=== PATIENT | male | born 1960 | race Hispanic/Latino ===

== ENCOUNTER 2018-03-16 10:34 | Observation (INO) | payer MEDICARE ==
[2018-03-16 11:18] LABS: #Basophils 0.1 thou/uL (0.0-0.2); #Eosinphils 0.7 thou/uL (0.0-0.7); #Lymphocytes 1.2 thou/uL (1.20-3.40); #Monocytes 0.5 thou/uL (0.11-0.59); #Neutrophils 5.2 thou/uL (1.40-6.50); %Basophils 0.7 % (0.0-1.0); %Eosinophils 8.8 % (0.0-10.0); %Lymphocytes 15.8 % (21.0-51.0); %Monocytes 6.2 % (0.0-10.0); %Neutrophils 68.5 % (42.0-75.0); Hemoglobin 13.1 g/dL (14.0-18.0); Mean Corpuscular HGB CONC 32.6 g/dL (32.0-36.0); Mean Corpuscular Volume 91.8 fl (80.0-94.0); Mean Platelet Volume 9.8 fL (7.4-10.4); Platelet Count 167 thou/uL (130-400); RBC Distribution Width 13.9 % (11.5-14.5); Red Blood Cell (RBC) Count 4.37 mill/uL (4.70-6.10); White Blood Cell (WBC) Count 7.6 thou/uL (4.8-10.8)
[2018-03-16 11:42] LABS: ALT (SGPT) 14 U/L (8-55); AST (SGOT) 17 U/L (5-34); Alkaline Phosphatase 155 U/L (40-150); Anion Gap 20 mmol/L (10-20); BUN (Urea Nitrogen) 85 mg/dL (8.4-25.7); Bilirubin, Total 0.5 mg/dL (0.2-1.2); CK (CPK) 274 U/L (30-200); Calc. Creatinine Clearance 0 mL/min (70-130); Calcium 9.1 mg/dL (7.8-10.44); Carbon Dioxide 21 mmol/L (22-29); Chloride 100 mmol/L (98-107); Estimated GFR-MDRD 4; Globulin 3.3 g/dL (2.4-3.5); Glucose 244 mg/dL (70-105); Potassium 5.9 mmol/L (3.5-5.1); Protein, Total 7.3 g/dL (6.0-8.3); Sodium 135 mmol/L (136-145)
[2018-03-16 11:46] LABS: Troponin I 0.094 ng/mL (< 0.028)
[2018-03-16 11:50] LABS: CKMB 9.2 ng/mL (0-6.6)
[2018-03-16] MEDS ORDERED: Calcium Gluc 4.6 MEQ/10 ML (100 MG/ML) ONE (12:09)
[2018-03-16] MEDS ORDERED: Insulin Regular 300 UNITS/3 ML VIAL ONE (12:09)
[2018-03-16] MEDS ORDERED: Dextrose 50% Abboject 50 ML SYRINGE ONE (12:09)
[2018-03-16] MEDS ORDERED: Sodium Bicarb 50 MEQ/50 ML Abboject 8.4% SYRINGE ONE (12:09)
--- NOTE | 2018-03-16 12:29 | RAD ---
FRONTAL RADIOGRAPH CHEST: Date: 03-16-18 Comparison: 01-03-14 History: Dyspnea. FINDINGS: Midline sternotomy wires are present. Heart and mediastinal contours are within normal limits. No pne umothorax, pleural fluid, focal consolidation or alveolar edema. There is a linear segment of what appears to represent catheter tubing overlying the left lung base/c ardiac silhouette, stable. There is a segment of catheter tubing overlying the expected location of t he descending thoracic aorta. IMPRESSION: No acute findings. See above discussion. POS: BOYD
[2018-03-16] MEDS ORDERED: hydrALAZINE 20 MG/ML VIAL ONE (13:20)
--- NOTE | 2018-03-16 13:52 | HP ---
PRIMARY CARE PHYSICIAN: [facility] call admission. [place] REASON FOR ADMISSION: AV fistula malfunction, hypertensive urgency, hyperkalemia. HISTORY OF PRESENT ILLNESS: A 57-year-old male who has end-stage renal disease, on hemodialysis , Friday, Friday as well as history of diabetes type 2, obesity, coronary artery disease with st ent, who went to dialysis center as per his routine schedule. Unfortunately, today they were not abl e to dialyze him because his fistula was not functioning properly. His last dialysis was on Friday. At dialysis center, his blood pressure was also very high and he was complaining of chest discomfort , shortness of breath and that is why he was directed to emergency room. In the emergency room, his blood pressure was 208/88. His routine blood test showed hyperkalemia and indeterminate troponin. A fter emergency room treatment, his blood pressure was slightly improved and he was feeling better in the form of shortness of breath and chest discomfort cuenca. He was also complaining of left upper ext remity pain. He denies any fever or chills. He denies any cough. He denies any orthopnea, PND, leg swelling. He denies any calf tenderness. He denies any UTI symptoms. He denies any constipation, diarrhea, melena or hematochezia. REVIEW OF SYSTEMS: The following complete review of systems was negative, unless otherwise mentioned in the HPI or below: Constitutional: Weight loss or gain, ability to conduct usual activities. Sk in: Rash, itching. Eyes: Double vision, pain. ENT/Mouth: Nose bleeding, neck stiffness, pain, te nderness. Cardiovascular: Palpitations, dyspnea on exertion, orthopnea. Respiratory: Shortness of breath, wheezing, cough, hemoptysis, fever or night sweats. Gastrointestinal: Poor appetite, abdom inal pain, heartburn, nausea, vomiting, constipation, or diarrhea. Genitourinary: Urgency, frequenc y, dysuria, nocturia. Musculoskeletal: Pain, swelling. Neurologic/Psychiatric: Anxiety, depressio n. Allergy/Immunologic: Skin rash, bleeding tendency. Please see my HPI for pertinent positive and negative. All other review of systems reviewed and nega tive except as mentioned in the HPI. ALLERGIES: IODINE, SHELLFISH containing product. CURRENT HOME MEDICATIONS: The patient did not bring his home medication and he does not know the nam e of medication, so unable to review, but based on our previous hospital course, he was on amiodarone 200 mg daily, PhosLo 667 mg 2 tablets t.i.d., calcium carbonate 1000 mg t.i.d., Coreg 3.125 mg p.o. b.i.d., insulin Lantus 40 units subcu morning and 30 units in evening, Effient 10 mg daily. This med ication mentioned above is not verified. PAST MEDICAL HISTORY: ESRD, on hemodialysis. with his following him as an outpatient basis; he is on Friday, Friday, Friday dialysis schedule. Diabetes type 2 requiring insulin, coronary arter y disease with a history of stent, obesity, dyslipidemia, degenerative joint disease, anemia of renal disease, secondary hyperparathyroidism of renal origin, chronic diastolic heart failure, bilateral c ataracts. PAST SURGICAL HISTORY: Cardiac catheterization with stent placement; per patient, he has 7 stent in his heart. Dialysis procedure including temporary dialysis catheter placement in right groin, tunnel ed dialysis catheter placement in chest. He has AV fistula in the left upper arm. He also had a per itoneal dialysis catheter placed and subsequently removed, left heel surgery, left knee surgery and r ight finger surgery. CABG x3. PAST PSYCHIATRIC HISTORY: Reviewed and negative. SOCIAL HISTORY: The patient is a former smoker. He quit smoking more than 10 years ago. He drinks alcohol occasionally. He denies any other illicit drug abuse. FAMILY HISTORY: Diabetes, hypertension runs among several family members. Coronary artery disease a lso positive among parents and siblings. EMERGENCY ROOM COURSE: Patient is given Humulin R 10 units, D50 one ampule, sodium bicarbonate 1 amp ule, calcium gluconate 1 ampule. PHYSICAL EXAMINATION: VITAL SIGNS: Blood pressure on admission 208/88, pulse 75, respiratory rate 15, temperature 98.7, sa turation 97% on room air, weight 98 kilograms. GENERAL: Patient is currently hypertensive, no obvious acute distress. HEAD: Normocephalic, atraumatic. EYES: Pupils round, reactive to light. Extraocular muscle intact. ENT: Oropharynx within normal limits. Moist mucous membranes. No oral lesion, no pharyngeal erythe ma, no exudate. NECK: Supple, no JVD, no thyromegaly, no carotid bruit, no jugular venous distention. LUNGS: Clear to auscultation without any obvious rales or rhonchi. No end expiratory wheezing heard . No accessory muscles of respiration in use. CARDIAC: S1, S2 regular without any significant murmur. ABDOMEN: Obesity present. Bowel sounds present, nontender, nondistended. No organomegaly, no mass, no suprapubic tenderness. BACK: Unremarkable, no CVA tenderness. EXTREMITIES: Upper extremity: Passive movements of all joints are normal. Lower extremities: No e art, no calf tenderness. Good distal pulsation. SKIN: No skin rash. HEMATOLOGICAL: No lymphadenopathy. PSYCHIATRIC: Normal affect. NEUROLOGIC: Nonfocal examination. Patient is moving all 4 limbs. Cranial nerves II-XII intact. Mo tor and sensation within normal limits. Reflexes symmetrical. No cerebellar sign. SIGNIFICANT LABORATORY DATA: Telemetry showing sinus rhythm on monitor. Chest x-ray based on my rev iew, no acute cardiopulmonary process. CBC: WBC 7.6, hemoglobin 13.1, platelet 167. BMP: Sodium 1 35, potassium 5.9, chloride 100, carbon dioxide 21, anion gap 20, BUN 85, creatinine 12.65, glucose 2 44, calcium 9.1. LFT: AST 17, ALT 14, alkaline phosphatase 155, albumin 4.0. CK 274, CK-MB 9.2, tr oponin 0.094. BNP 2786. ASSESSMENT AND PLAN: 1. Hypertensive urgency. We will use hydralazine, labetalol p.r.n. basis and continue with nitro pa tch q.8 hourly, Coreg 3.125 mg twice daily. We will also add hydralazine 25 mg p.o. t.i.d. and will adjust his blood pressure medication while in hospital. 2. Hyperkalemia, likely due to end-stage renal disease. Patient's last dialysis was on Friday. He was not able to get dialysis today. He is given hyperkalemia cocktail treatment in the emergency zaynab m. We will give him Kayexalate 30 grams p.o. one time dose. We will repeat renal function test nu rrow. Nephrology will be consulted. 3. AV fistula malfunction. We will consult Nephrology. The patient will need AV fistulogram tomorr ow if fistula is not functioning properly for dialysis, then he may need temporary dialysis access. We will defer that part to Nephrology. 4. Secondary hyperparathyroidism of renal origin. We will continue PhosLo 667 mg 2 tablets t.i.d. 5. Diabetes type 2. Insulin as per sliding scale protocol. We will also resume Levemir insulin 15 units subcu b.i.d. 6. Coronary artery disease with history of stent and coronary artery bypass graft. Continue aspirin along with Coreg therapy. 7. Chronic diastolic heart failure. We will obtain echocardiography to assess ejection fraction and other structural abnormality during this admission. Elevated troponins likely due to demand ischemi a and renal insufficiency. We will do serial cardiac enzymes x3 to rule out acute coronary syndrome. The patient will be kept on aspirin, nitropatch, and will check lipid profile for risk stratificati on. 8. Deep venous thrombosis prophylaxis not needed because we are expecting discharge in 24-48 hours. 9. Gastrointestinal prophylaxis, Protonix 40 mg p.o. daily. CODE STATUS: The patient is FULL CODE. Patient does not have any surrogate decision maker. He make s his decision by himself. Disposition plan based on clinical course. Plan of care discussed with the patient in detail.
[2018-03-16] MEDS ORDERED: Loratadine 10 MG TAB PO PRN (14:23)
[2018-03-16] MEDS ORDERED: Calcium Carbonate 500 MG ChewTAB PO PRN (14:23)
[2018-03-16] MEDS ORDERED: Chloraseptic Spray 180 ml Bottle PO PRN (14:23)
[2018-03-16] MEDS ORDERED: Diabetic Tussin 200 MG/10 ML UDCUP PO PRN (14:23)
[2018-03-16] MEDS ORDERED: Eucerin (Mineral Oil/Petrolatum,White) 30 gm Jar TOP PRN (14:23)
[2018-03-16] MEDS ORDERED: Milk Of Magnesia 30 ML UDCUP PO PRN (14:23)
[2018-03-16] MEDS ORDERED: Ondansetron HCl/PF 4 MG/2 ML Vial IVP PRN (14:23)
[2018-03-16] MEDS ORDERED: Dextrose 5% in Water 1,000 ML IV PRN (14:23)
[2018-03-16] MEDS ORDERED: Acetaminophen 325 MG TAB PO PRN (14:23)
[2018-03-16] MEDS ORDERED: hydrALAZINE 20 MG/ML VIAL SLOW IVP PRN (14:23)
[2018-03-16] MEDS ORDERED: Senokot 8.6 MG TAB PO PRN (14:23)
[2018-03-16] MEDS ORDERED: Loperamide HCl 2 MG CAP PO PRN (14:23)
[2018-03-16] MEDS ORDERED: Nitroglycerin 0.4 MG TAB (25 Tab Bottle) PO PRN (14:23)
[2018-03-16] MEDS ORDERED: Mag-Al 1200 mg/1200 mg/30 ML UDCUP PO PRN (14:23)
[2018-03-16] MEDS ORDERED: Sodium Chloride 0.65% Nasal 44 ML BOT EA NARE PRN (14:23)
[2018-03-16] MEDS ORDERED: Artificial Tears 18 DROP/0.9 ML EA EYE PRN (14:23)
[2018-03-16] MEDS ORDERED: Zolpidem Tartrate 5 MG TAB PO PRN (14:23)
[2018-03-16] MEDS ORDERED: Ondansetron ODT 4 MG TAB PO PRN (14:23)
[2018-03-16] MEDS ORDERED: Labetalol HCl 100 MG/20 ML VIAL SLOW IVP PRN (14:23)
[2018-03-16] MEDS ORDERED: Dextrose 50% Abboject 50 ML SYRINGE SLOW IVP PRN (14:23)
[2018-03-16] MEDS ORDERED: HumaLOG 300 UNITS/3 ML VIAL SC PRN (14:23)
[2018-03-16 14:36] VITALS: BMI 37.0
[2018-03-16] MEDS: Nitroglycerin 2% Ointment 1 INCH/1 GM Packet TOP SCH ×2 (15:21→21:18)
[2018-03-16] MEDS: Calcium Acetate 667 MG CAP PO SCH (16:40)
[2018-03-16] MEDS: Carvedilol 3.125 MG TAB PO SCH (21:00)
[2018-03-16] MEDS: HYDROcodone/Acetaminophen 5/325 mg Tablet PO PRN (21:00)
[2018-03-16] MEDS ORDERED: Insulin Glargine 10 UNITS in Pre-Filled Syringe 1 EACH SC SCH (21:00)
[2018-03-16] MEDS ORDERED: hydrALAZINE 25 MG TAB PO SCH (21:00)
[2018-03-16] MEDS ORDERED: Atorvastatin Calcium 20 MG TAB PO SCH (21:00)
[2018-03-16] MEDS ORDERED: Nitroglycerin 0.4 MG TAB (25 Tab Bottle) ONE (21:09)
--- NOTE | 2018-03-17 03:02 | CON ---
DATE OF CONSULTATION: 03/16/2018 CONSULTING PHYSICIAN: REASON FOR CONSULTATION: End stage renal disease evaluation and care with hyperkalemia. REASON FOR ADMISSION: Clotted access. HISTORY OF PRESENT ILLNESS: A 57-year-old male with history of end-stage renal disease on hemodialys is Friday, Friday, and Friday. Last dialysis on Friday [facility] and was found to have clotted access and was sent to the hospital. The patient complains of mild shortness of breath. He had 4 kilos on before dialysis. He was found to have potassium of 5.9 and n ot able to get dialysis access declotted today and is being admitted. Nephrology is consulted for en d-stage renal disease evaluation and care. No fever or chills. No nausea, vomiting, no chest pain r eported. No palpitation. PAST MEDICAL HISTORY: Positive for end-stage renal disease, type 2 diabetes, coronary artery disease , obesity, hyperlipidemia, hyperparathyroidism, and congestive heart failure. PAST SURGICAL HISTORY: Cardiac catheterization, dialysis access procedures, AV fistula, peritoneal d ialysis catheter placed and removed due to failure, left heel surgery, left knee surgery, right finge r surgery, and CABG. HOME MEDICATIONS: Include amiodarone, PhosLo, calcium carbonate, Coreg, insulin, Lantus, and Effient . SOCIAL HISTORY: No smoking, alcohol, or illicit drug abuse. FAMILY HISTORY: No history of kidney disease. ALLERGIES: SHELLFISH and IODINE. REVIEW OF SYSTEMS: The following complete review of systems was negative, unless otherwise mentioned in the HPI or below: Constitutional: Weight loss or gain, ability to conduct usual activities. Sk in: Rash, itching. Eyes: Double vision, pain. ENT/Mouth: Nose bleeding, neck stiffness, pain, ten derness. Cardiovascular: Palpitations, dyspnea on exertion, orthopnea. Respiratory: Shortness of breath, wheezing, cough, hemoptysis, fever or night sweats. Gastrointestinal: Poor appetite, abdomi nal pain, heartburn, nausea, vomiting, constipation, or diarrhea. Genitourinary: Urgency, frequency , dysuria, nocturia. Musculoskeletal: Pain, swelling. Neurologic/Psychiatric: Anxiety, depression . Allergy/Immunologic: Skin rash, bleeding tendency. PHYSICAL EXAMINATION: GENERAL: This is an obese male in no apparent distress. VITAL SIGNS: Temperature 98.0, pulse 79, respiratory rate 18, blood pressure 140/91. HEENT: Atraumatic, normocephalic. Oral mucosa is moist. NECK: Supple, no masses. CARDIOVASCULAR: S1, S2 heard. RESPIRATORY: Reduced breath sounds at the bases. GASTROINTESTINAL: Abdomen is soft. MUSCULOSKELETAL: . DERMATOLOGIC: No rash. NEUROLOGIC: Alert, awake. PSYCHIATRIC: Mood and affect. LABORATORY DATA: Hemoglobin is 13.1, potassium 5.9, BUN 85, creatinine is 12.6. ASSESSMENT AND PLAN: 1. End-stage renal disease. Plan is to place the patient in observation. The patient needs declott ing of the access, but no radiologist available to do it today. 2. Hyperkalemia. Potassium is 5.9. Recommend medical management for now with close monitoring. No electrocardiogram changes. No chest pain or palpitation. Plan is to medically manage potassium and start dialysis as soon as access is established. 3. Mild hyponatremia. 4. Edema, controlled. 5. Hypertension, stable. 6. Anemia, mild. Plan is to have medically management of hyperkalemia. Limit potassium in the diet and monitored in [facility] and we will have declotting done as early as possible and dialysis when feasible. Thank you for the consult. We will follow.
[2018-03-17] MEDS: Nitroglycerin 2% Ointment 1 INCH/1 GM Packet TOP SCH ×2 (04:36→13:10)
[2018-03-17 05:09] LABS: Albumin 3.8 g/dL (3.5-5.0); Anion Gap 23 mmol/L (10-20); BUN (Urea Nitrogen) 93 mg/dL (8.4-25.7); BUN/Creatinine Ratio 6.88; Calc. Creatinine Clearance 8 mL/min (70-130); Calcium 8.9 mg/dL (7.8-10.44); Carbon Dioxide 17 mmol/L (22-29); Cardiac Risk 4.1 (Less than 4.5); Chloride 102 mmol/L (98-107); Cholesterol 110 mg/dl (< 200 Desired); Estimated GFR-MDRD 4; Glucose 74 mg/dL (70-105); HDL Cholesterol 27 mg/dL (>60 Neg Risk); LDL Cholesterol, Calculated 61 mg/dL; Phosphorus 5.6 mg/dL (2.3-4.7); Potassium 5.6 mmol/L (3.5-5.1); Sodium 136 mmol/L (136-145); Triglycerides 111 mg/dL (Less than 150)
[2018-03-17 07:11] LABS: #Eosinphils 0.7 thou/uL (0.0-0.7); #Lymphocytes 1.2 thou/uL (1.20-3.40); #Monocytes 0.5 thou/uL (0.11-0.59); #Neutrophils 5.6 thou/uL (1.40-6.50); %Basophils 0.5 % (0.0-1.0); %Eosinophils 8.3 % (0.0-10.0); %Lymphocytes 14.4 % (21.0-51.0); %Monocytes 6.5 % (0.0-10.0); %Neutrophils 70.3 % (42.0-75.0); Hemoglobin 13.1 g/dL (14.0-18.0); Mean Corpuscular HGB CONC 32.5 g/dL (32.0-36.0); Mean Corpuscular Hemoglobin 29.4 pg (27.0-31.0); Mean Corpuscular Volume 90.3 fl (80.0-94.0); Mean Platelet Volume 9.5 fL (7.4-10.4); Platelet Count 161 thou/uL (130-400); Red Blood Cell (RBC) Count 4.47 mill/uL (4.70-6.10)
[2018-03-17] MEDS: Calcium Acetate 667 MG CAP PO SCH ×3 (07:36→12:21)
[2018-03-17] MEDS: hydrALAZINE 25 MG TAB PO SCH ×2 (07:36→15:15)
[2018-03-17] MEDS: Carvedilol 3.125 MG TAB PO SCH (07:36)
[2018-03-17] MEDS: HYDROcodone/Acetaminophen 5/325 mg Tablet PO PRN (07:36)
[2018-03-17 07:55] LABS: Troponin I 0.092 ng/mL (< 0.028)
[2018-03-17 07:59] LABS: CKMB 9.7 ng/mL (0-6.6)
[2018-03-17] MEDS ORDERED: Insulin Glargine 22 UNITS in Pre-Filled Syringe 1 EACH SC SCH (09:00)
[2018-03-17] MEDS ORDERED: Aspirin 325 MG TAB PO SCH (09:00)
[2018-03-17] MEDS ORDERED: Insulin Glargine 10 UNITS in Pre-Filled Syringe 1 EACH SC SCH (09:00)
[2018-03-17] MEDS ORDERED: Clopidogrel Bisulfate 75 MG TAB PO SCH (09:00)
[2018-03-17] MEDS ORDERED: Sacubitril 49 MG/Valsartan 51 MG TABLET PO SCH (09:00)
--- NOTE | 2018-03-17 09:15 | PDOC.PN ---
- Subjective Encounter Start Date: 03/17/18 Encounter Start Time: 07:20 -: old records requested/rev Patient seen and examined for hyperkalemia. c/o dyspnea. No overnight events - Objective Resuscitation Status: Resuscitation Status FULL:Full Resuscitation MAR Reviewed: Yes Vital Signs & Weight: Vital Signs (12 hours) Temp Pulse Resp BP BP Pulse Ox 03/17/18 08:00 97.5 F L 82 20 03/17/18 07:18 97.5 F L 82 20 198/88 H 98 03/17/18 05:02 169/78 H 98 03/17/18 04:14 97.5 F L 78 20 197/88 H 98 03/16/18 23:05 97.8 F 81 20 169/76 H 96 Weight Weight 221 lb 12.8 oz I&O: 03/16/18 03/17/18 03/18/18 06:59 06:59 06:59 Intake Total 510 Output Total 0 Balance 510 Result Diagrams: 03/17/18 06:52 03/17/18 03:39 Additional Labs: Accuchecks 03/17/18 03/16/18 03/16/18 04:08 21:00 16:33 POC Glucose 75 274 H 112 H 03/16/18 14:01 POC Glucose 165 H EKG Reviewed by me: Yes (nsr) Phys Exam - Physical Examination Constitutional: NAD HEENT: PERRLA, moist MMs, sclera anicteric Neck: no JVD, supple Respiratory: no wheezing, no rales, no rhonchi Cardiovascular: RRR, no significant murmur, no rub Gastrointestinal: soft, non-tender, no distention, positive bowel sounds obesity+ Musculoskeletal: no edema, pulses present Neurological: non-focal, normal sensation, moves all 4 limbs Lymphatic: no nodes Psychiatric: normal affect, A&O x 3 Skin: no rash, normal turgor Dx/Plan (1) Chest pain Code(s): R07.9 - CHEST PAIN, UNSPECIFIED Status: Acute (2) Dialysis AV fistula malfunction Code(s): T82.590A - [facility] COMPL OF SURGICALLY CREATED ARTERIOVENOUS FISTULA, INIT Status: Acute (3) Elevated troponin Code(s): R74.8 - ABNORMAL LEVELS OF OTHER SERUM ENZYMES Status: Acute (4) Hyperkalemia Code(s): E87.5 - HYPERKALEMIA Status: Acute (5) Hypertensive urgency Code(s): I16.0 - HYPERTENSIVE URGENCY Status: Acute (6) Anemia of renal disease Code(s): D63.1 - ANEMIA IN CHRONIC KIDNEY DISEASE Status: Chronic (7) CAD (coronary artery disease) Code(s): I25.10 - ATHSCL HEART DISEASE OF [place] CORONARY ARTERY W/O ANG PCTRS Status: Chronic (8) Chronic diastolic (congestive) heart failure Code(s): I50.32 - CHRONIC DIASTOLIC (CONGESTIVE) HEART FAILURE Status: Chronic (9) Dyslipidemia Code(s): E78.5 - HYPERLIPIDEMIA, UNSPECIFIED Status: Chronic (10) ESRD (end stage renal disease) on dialysis Code(s): N18.6 - END STAGE RENAL DISEASE; Z99.2 - DEPENDENCE ON RENAL DIALYSIS Status: Chronic (11) Obesity (BMI 30-39.9) Code(s): E66.9 - OBESITY, UNSPECIFIED Status: Chronic (12) Secondary hyperparathyroidism of renal origin Code(s): N25.81 - SECONDARY HYPERPARATHYROIDISM OF RENAL ORIGIN Status: Chronic - Plan cont current plan of care * he will need HD before discharge * today AV fistulogram * if AVF not functioning, he may need tunneled HD catheter placement * will give dose of kayexalate * selected home medication reconciled * medication reviewed as below * symptomatic treatment. * change hydralazine 25 mg po tid Review of Systems - Review of Systems Constitutional: negative: fever, chills, sweats, weakness, malaise, other Eyes: negative: Pain, Vision Change, Conjunctivae Inflammation, Eyelid Inflammation, Redness, Other ENT: negative: Ear Pain, Ear Discharge, Nose Pain, Nose Discharge, Nose Congestion, Mouth Pain, Mouth Swelling, Throat Pain, Throat Swelling, Other Respiratory: Shortness of Breath, SOB with Excertion. negative: Cough, Dry, Hemoptysis, Pleuritic Pain, Sputum, Wheezing Cardiovascular: negative: chest pain, palpitations, orthopnea, paroxysmal nocturnal dyspnea, edema, light headedness, other Gastrointestinal: negative: Nausea, Vomiting, Abdominal Pain, Diarrhea, Constipation, Melena, Hematochezia, Other Genitourinary: negative: Dysuria, Frequency, Incontinence, Hematuria, Retention , Other Musculoskeletal: negative: Neck Pain, Shoulder Pain, Arm Pain, Back Pain, Hand Pain, Leg Pain, Foot Pain, Other Skin: negative: Rash, Lesions, Enoc, Bruising, Other - Medications/Allergies Allergies/Adverse Reactions: Allergies Allergy/AdvReac Type Severity Reaction Status Date / Time iodine Allergy Verified 09/22/13 20:48 shellfish derived Allergy Verified 09/22/13 20:48 Medications: Current Medications Acetaminophen (Tylenol) 650 mg PO Q4H PRN PRN Reason: Headache/Fever or Pain Hydrocodone Bitart/Acetaminophen ([place] 5/325) 1 tab PO Q4H PRN PRN Reason: Moderate Pain (4-6) Last Admin: 03/17/18 07:36 Dose: 1 tab Al Hydroxide/Mg Hydroxide (Maalox) 30 ml PO Q6H PRN PRN Reason: Heartburn or Indigestion Albuterol/Ipratropium (Duoneb) 3 ml NEB [id number] PRN PRN Reason: SOB &/or Wheezing Artificial Tears (Tears Naturale) 0 drop EA EYE PRN PRN PRN Reason: Dry Eyes Aspirin (Aspirin Chewable) 81 mg PO HS [facility] Atorvastatin Calcium (Lipitor) 80 mg PO HS [facility] Calcium Acetate (Phoslo) 1,334 mg PO TID[facility] Last Admin: 03/17/18 08:54 Dose: Not Given Calcium Carbonate (Tums) 1,000 mg PO Q4H PRN PRN Reason: Heartburn or Indigestion Carvedilol (Coreg) 3.125 mg PO BID [facility] Last Admin: 03/17/18 07:36 Dose: 3.125 mg Clopidogrel Bisulfate (Plavix) 75 mg PO DAILY [facility] Last Admin: 03/17/18 07:35 Dose: 75 mg Dextrose/Water (Dextrose 50%) 25 gm SLOW IVP PRN PRN PRN Reason: Hypoglycemia Glucagon (Glucagon) 1 mg IM PRN PRN PRN Reason: Hypoglycemia Guaifenesin (Robitussin Sf) 200 mg PO Q4H PRN PRN Reason: Cough Hydralazine HCl (Apresoline) 10 mg SLOW IVP Q4H PRN PRN Reason: Systolic BP > 180 Last Admin: 03/17/18 04:14 Dose: 10 mg Hydralazine HCl (Apresoline) 25 mg PO TID [facility] Last Admin: 03/17/18 07:36 Dose: 25 mg Dextrose/Water (D5w) 1,000 mls @ 0 mls/hr IV .Q0M PRN; As Directed PRN Reason: Hypoglycemia Insulin Glargine 22 units/ (Miscellaneous Medication) 0.22 mls @ 0 mls/hr SC BID [facility] Last Admin: 03/17/18 09:08 Dose: Not Given Insulin Human Lispro (Humalog) 0 units SC .MODERATE SLIDING SC PRN PRN Reason: Moderate [place] Scale Labetalol HCl (Normodyne) 20 mg SLOW IVP Q4H PRN PRN Reason: Systolic BP > 180 Loperamide HCl (Imodium) 2 mg PO PRN PRN PRN Reason: Diarrhea/Loose Stools Loratadine (Claritin) 10 mg PO DAILYPRN PRN PRN Reason: Sinus Symptoms Magnesium Hydroxide (Milk Of Magnesium) 30 ml PO DAILYPRN PRN PRN Reason: Constipation Mineral Oil/White Petrolatum (Eucerin Cream) 0 gm TOP BIDPRN PRN PRN Reason: Dry Skin Nitroglycerin (Nitro-Bid 2% Ointment) 0.5 inch TOP Q8HR [facility] Last Admin: 03/17/18 04:36 Dose: Not Given Nitroglycerin (Nitrostat) 0.4 mg PO Q5MIN PRN PRN Reason: Chest Pain Last Admin: 03/16/18 21:14 Dose: 0.4 mg Ondansetron HCl (Zofran Odt) 4 mg PO Q6H PRN PRN Reason: Nausea/Vomiting Ondansetron HCl (Zofran) 4 mg IVP Q6H PRN PRN Reason: Nausea/Vomiting Pantoprazole Sodium (Protonix) 40 mg PO DAILY [facility] Last Admin: 03/17/18 07:36 Dose: 40 mg Phenol (Chloraseptic [place] 180 Ml Bot) 0 ml PO PRN PRN PRN Reason: Sore Throat Ranolazine (Ranexa) 500 mg PO BID [facility] Last Admin: 03/17/18 07:35 Dose: 500 mg Sacubitril/Valsartan (Entresto 49 Mg-51 Mg Tablet) 1 tab PO DAILY [facility] Last Admin: 03/17/18 07:42 Dose: 1 tab Senna (Senokot) 2 tab PO HSPRN PRN PRN Reason: Constipation Sodium Chloride ([place] Nasal [place] 0.65%) 0 ml EA NARE QIDPRN PRN PRN Reason: Nasal Congestion Sodium Chloride (Flush - Normal Saline) 10 ml IVF Q12HR [facility] Last Admin: 03/17/18 09:13 Dose: 10 ml Sodium Chloride (Flush - Normal Saline) 10 ml IVF PRN PRN PRN Reason: Saline Flush Zolpidem Tartrate (Ambien) 5 mg PO HSPRN PRN PRN Reason: Insomnia
--- NOTE | 2018-03-17 10:37 | PRG ---
Patient Name: ROLY ROSE Date of service: 03/17/2018 Subjective: Patient was seen and examined at bedside and overnight events noted. Patient denies any shortness of breath or chest pain or palpitation. No history of nausea or vomiting or diarrhea or fever or chills or cramps. Objective: General: This is a well-built male in no apparent distress. Vital signs: Temperature 97.5, pulse 82, respiratory rate 20, blood pressure 198/88. HEENT: Atraumatic, normocephalic. Oral mucosa is moist. Neck: Supple. Cardiovascular: S1 S2 heard. Rate and rhythm regular. Respiratory: Clear to auscultation. Gastrointestinal: Abdomen is soft. Musculoskeletal: No tenderness. No edema. Dermatologic: No skin rash. Neurologic: Alert and awake and oriented X3. No focal neurologic deficits. Moving all the extremit ies. Psychiatric: Mood and affect normal. LABORATORY DATA: Potassium is 5.6, BUN 93, creatinine 13.5. ASSESSMENT AND PLAN: 1. End-stage renal disease on hemodialysis. Plan is to continue on dialysis as tolerated. Apparent ly his access is working for dialysis today and not able to declot wait until tomorrow. Patient is r unning okay now. We will continue on dialysis. He will need dialysis today and tomorrow. Continue dialysis Friday, Friday, and Friday from tomorrow. 2. Hyperkalemia. Limit potassium in the diet. Potassium slightly better with medical management. 3. Edema. 4. Hypertension. 5. Anemia. Monitor hemoglobin. Continue on dialysis as tolerated. Follow up access issues.
--- NOTE | 2018-03-17 12:23 | DIS ---
DATE OF ADMISSION: 03/16/2018 DATE OF DISCHARGE: 03/17/2018 PRIMARY CARE PHYSICIAN: [facility] call admission. DISCHARGE DISPOSITION: Home. PRIMARY DISCHARGE DIAGNOSES: Hypertensive urgency; chest pain, ruled out acute coronary syndrome; AV fistula malfunction, resolved; hyperkalemia. SECONDARY DISCHARGE DIAGNOSES: Coronary artery disease; secondary hyperparathyroidism of renal origi n; anemia of renal disease; end-stage renal disease, on hemodialysis; obesity with BMI 35; dyslipidem ia; chronic diastolic heart failure; hypertension; chronically elevated troponin. PRIMARY PROCEDURE/OPERATION: Hemodialysis. RADIOLOGICAL INVESTIGATION: Chest x-ray was unremarkable. SIGNIFICANT LABORATORY DATA: Hemoglobin 13.1, WBC 8.0, platelet 161. Sodium 136, potassium 5.6, BUN 19, creatinine 13.52, alkaline phosphorus 5.6, LDL 61, CK-MB 9.7, troponin 0.092. DISCHARGE MEDICATIONS: Aspirin 81 mg p.o. daily, Plavix 75 mg p.o. daily, Lipitor 80 mg p.o. at bedt aram, PhosLo 667 mg p.o. t.i.d., Coreg 3.125 mg p.o. b.i.d., NovoLog insulin as per sliding scale, Claudio tus 22 units subcu b.i.d., Imdur 30 mg p.o. daily, nitroglycerin 0.4 mg sublingual p.r.n., Protonix 4 0 mg p.o. daily, Effient 10 mg p.o. daily, Ranexa 500 mg p.o. b.i.d., Entresto 1 tablet p.o. daily, h ydralazine 50 mg p.o. t.i.d. CONTRAINDICATIONS: None. CODE STATUS: FULL CODE. INPATIENT DELINQUENT TAX COLLECTOR ASSISTANT: Dr. Castillo was consulted while in hospital. ALLERGIES: IODINE and SHELLFISH. DISCHARGE PLAN: Post hospital, the patient will follow up with primary care physician. The patient will have maintenance of hemodialysis as per schedule. The patient will follow up with Dr. Castillo. TEST RESULTS PENDING ON DISCHARGE: None. HOSPITAL COURSE: This is a 57-year-old male who was referred from dialysis center for inability to a ccess AV fistula. The patient had hyperkalemia. He was also feeling shortness of breath and chest d iscomfort. His hyperkalemia was treated with sodium bicarbonate and glucose insulin and calcium gluc leena. We also give him Kayexalate. While in hospital, we did serial cardiac enzyme and ruled out a cute coronary syndrome. He does have chronic microvascular disease in his heart. He is not a candid ate for any further intervention. He does not have any angina at this point. We continued his medic al therapy. He is currently on optimum medical therapy. While in hospital, he required hemodialysis after that his symptoms significantly improved. His AV fistula site was working. At this point, the patient is medically stable. We are increasing his blood pressure medication with hydralazine 25 mg p.o. t.i.d. We also advised him to take extra hydralazine if blood pressure is re maining high. Overall, this patient is medically stable for discharge as long as Dr. Castillo is okay after dialysis . The patient is seen and examined at bedside today. Please see my progress note from today for furthe r detail.
[2018-03-17 14:29] VITALS: BP 131/72; TEMP 97.3
[2018-03-17] MEDS ORDERED: Atorvastatin Calcium 40 MG TAB PO SCH (21:00)
== END 2018-03-17 16:36 | disposition home or self-care (01) ==
LOC: ERS 10:34 → 2SW 12:47
PROVIDERS: ADMIT Internal Medicine; ATTEND Internal Medicine
DX: I16.0 Hypertensive urgency (principal); I13.2 Hypertensive heart and chronic kidney disease with heart failure and with stage 5 chronic kidney disease, or end stage renal disease; E11.22 Type 2 diabetes mellitus with diabetic chronic kidney disease; N18.6 End stage renal disease; T82.590A Other mechanical complication of surgically created arteriovenous fistula, initial encounter; E87.5 Hyperkalemia; N25.81 Secondary hyperparathyroidism of renal origin; I50.32 Chronic diastolic (congestive) heart failure; I25.10 Atherosclerotic heart disease of native coronary artery without angina pectoris; E66.9 Obesity, unspecified; E78.5 Hyperlipidemia, unspecified; D63.1 Anemia in chronic kidney disease; Z95.1 Presence of aortocoronary bypass graft; Z95.5 Presence of coronary angioplasty implant and graft; Z87.891 Personal history of nicotine dependence; Z91.041 Radiographic dye allergy status; Z91.013 Allergy to seafood; Z79.02 Long term (current) use of antithrombotics/antiplatelets; Z79.4 Long term (current) use of insulin; Z79.899 Other long term (current) drug therapy
CPT/HCPCS: 71045; 80053; 80061; 80069; 82550; 82553 ×2; 82962 ×2; 83880; 84484 ×2; 85025 ×2; 93005; 96374; 96375; 96376; 99285; G0378; 36415; 36416; 90935; A4216; G0257; J0360; J1815